=== PATIENT | female | born 1950 | race Caucasian/White ===

== ENCOUNTER 2019-09-07 09:04 | Outpatient (CLI) | payer OTHER, MEDICARE ==
[2019-09-07] MEDS ORDERED: GADOBENATE DIMEGLUMINE 529 MG/ML, 15 ML VIAL IV ONE (10:09)
== END 2019-09-07 11:00 | disposition home or self-care (01) ==
LOC: SMI 09:04
DX: R93.0 Abnormal findings on diagnostic imaging of skull and head, not elsewhere classified (principal); H53.9 Unspecified visual disturbance
CPT/HCPCS: 70543; 70553; A9577